=== PATIENT | male | born 1940 | race Caucasian/White ===

== ENCOUNTER 2017-11-24 15:17 | Outpatient (CLI) ==
--- NOTE | 2017-11-24 16:08 | US ---
EXAM: Right lower extremity venous Doppler History: Right lower extremity pain and swelling. Technique: Multiple sonographic images through the right lower extremity were obtained. Color duple x Doppler was used to interrogate vascular flow. Findings: Partial compression and partial flow within the right superficial femoral, popliteal, amee ramón and posterior tibial veins. No flow with no compression involving the right anterior tibial vei n. The rest of the right lower extremity venous structures demonstrate spontaneous flow with normal compression and normal augmentation. There is right lower extremity subcutaneous edema. Impression: Right lower extremity deep venous thrombosis. Dr. Lizama was notified of the results by the technologist.
[2017-11-24 17:38] VITALS: BMI 29.0
== END 2017-11-24 15:18 | disposition home or self-care (01) ==
LOC: RAD 15:17
PROVIDERS: ATTEND Internal Medicine
DX: M79.604 Pain in right leg (principal); M79.89 Other specified soft tissue disorders; Z86.718 Personal history of other venous thrombosis and embolism

== ENCOUNTER 2017-11-24 16:10 | Inpatient (IN) | payer OTHER ==
[2017-11-24] MEDS ORDERED: NITROSTAT SL PRN (16:40)
[2017-11-24] MEDS ORDERED: MORPHINE 4 MG/ML VIAL IVP PRN (16:40)
[2017-11-24] MEDS ORDERED: ATROPINE SULFATE PFS IVP PRN (16:40)
[2017-11-24] MEDS ORDERED: VISTARIL INJ IM PRN (16:40)
[2017-11-24] MEDS ORDERED: TYLENOL PO PRN (16:40)
[2017-11-24] MEDS ORDERED: HUMULIN R SUBCUT PRN (16:44)
[2017-11-24 17:38] VITALS: BMI 29.0
--- NOTE | 2017-11-24 17:38 | DI ---
EXAM: Single view chest COMPARISON: None HISTORY: Cough FINDINGS: Lungs are clear with no lobar consolidation, failure, large effusion or significant atelec tasis. There is old granulomatous disease. Cardiac and mediastinal silhouettes show no acute abnormal ity. No acute soft tissue or osseous abnormalities. IMPRESSION: No active disease.
[2017-11-24] MEDS: ZESTRIL PO SCH (20:32)
[2017-11-24] MEDS: HYDROCHLOROTHIAZIDE PO SCH (20:32)
[2017-11-24] MEDS: XARELTO PO SCH (20:33)
[2017-11-25] MEDS ORDERED: ASPIRIN EC PO SCH (08:00)
[2017-11-25] MEDS ORDERED: SODIUM CHLORIDE 1,000 ML IV SCH (08:30)
[2017-11-25] MEDS: TRADJENTA PO SCH (08:59)
[2017-11-25] MEDS: GLUCOTROL PO SCH (08:59)
[2017-11-25] MEDS: ZESTRIL PO SCH ×2 (08:59→21:14)
[2017-11-25] MEDS: HYDROCHLOROTHIAZIDE PO SCH ×2 (08:59→21:15)
[2017-11-25] MEDS: FLOMAX PO SCH (08:59)
[2017-11-25] MEDS: XARELTO PO SCH ×2 (08:59→21:15)
--- NOTE | 2017-11-25 10:44 | PCM.PROG ---
Attending Provider: ATTENDING PROVIDER: Dr. MARIAN RODRIGUEZ This patient is seen with Kristi Nichols, Nurse Practitioner. DATE OF SERVICE: 11/25/17 SUBJECTIVE: This 77 year old WHITE/ M was hospitalized 11/24/17. The patient is lying in bed resting comfortably. Venous scan positive for DVT in right lower extremity yesterday. He was started on Xarelto for DVT treatment. The patient has history of DVT right lower extremity 2017. REVIEW OF SYSTEMS: CONSTITUTIONAL: No night sweats. No fatigue, malaise, lethargy. No fever or chills. HEENT: Eyes: No visual changes. No eye pain. No eye discharge. ENT: No runny nose. No epistaxis. No sinus pain. No odynophagia. No congestion. RESPIRATORY: No cough, no congestion. No hemoptysis. No shortness of breath. CARDIOVASCULAR: No angina symptoms. No CHF symptoms. No atypical chest pain for CAD. No palpitations. No orthopnea.. GASTROINTESTINAL: No abdominal pain. No nausea or vomiting. No diarrhea or constipation. No hematemesis. No hematochezia. GENITOURINARY: No urgency. No frequency. No dysuria. No hematuria. No obstructive symptoms. No discharge. No pain. No significant abnormal bleeding. MUSCULOSKELETAL: Right leg pain with walking. NEUROLOGICAL: Awake, alert, oriented to time, place and person. No headache. No neck pain. No syncope. No seizures. No dizziness. PSYCHIATRIC: Not anxious. No depression. No suicidal thoughts. No homicidal thoughts. SKIN: No rash. No lesions. No wounds. ENDOCRINE: No unexplained weight loss. No weight gain. HEMATOLOGIC/LYMPHATIC: No anemia. No purpura. No petechiae. No prolonged or excessive bleeding. No palpable lymph nodes. PHYSICAL EXAMINATION: GENERAL: The patient is awake, alert and oriented, lying in bed in no distress. VITAL SIGNS: Temperature 98.4 F, Pulse 63, Respiratory Rate 20, BP 131/71, Pulse Ox 95% HEENT: Head normocephalic, atraumatic. Eyes: Extraocular muscles are intact. Pupils are equal, round and reactive to light and accommodation. Ears: No lesions. Nose appeared normal. Throat: No exudate or erythema. NECK: Supple. No JVD, no carotid bruit. No lymphadenopathy or thyromegaly. LUNGS: Diminished breath sounds. Clear to auscultation. Percussion note normal. Chest symmetrical. HEART: S1, S2, no S3. No murmurs. No cyanosis or clubbing. No ascites. Pulses: Dorsalis pedis and posterior tibial pulses +1 to +2 both sides. ABDOMEN: Soft. Non-tender. Bowel sounds active. No CVA tenderness. No mass felt. EXTREMITIES: Slight swelling right lower extremity, warm to touch. Full range of motion of all extremities, equal. NEUROLOGIC: No focal deficit. Cranial nerves II through XII are grossly intact. No headache, no double vision or headache. SKIN: Not dry. Intact. Turgor-normal. LYMPHATIC: No palpable lymph nodes/no lymphedema. MUSCULOSKELETAL: Normal joints with no swelling. Muscle tone is normal. LAB REVIEW: 11/25/17 04:10 11/25/17 04:10 11/25/17 04:10: Sodium 135.5 L, Potassium 4.03, Chloride 99.7, Carbon Dioxide 31.9 H, Anion Gap 7.93, BUN 31.4 H, Creatinine 1.32 H, Estimated GFR (MDRD) 53.00, BUN/Creatinine Ratio 23.78, Glucose 125.6 H, Calcium 9.31, Total Bilirubin 0.61, AST 28.2, ALT 19.4, Alkaline Phosphatase 37.2 L, Total Protein 6.39, Albumin 3.39 L, Globulin 3.00, Albumin/Globulin Ratio 1.13 11/25/17 04:10: WBC 5.75, RBC 4.69 L, Hgb 13.0 L, Hct 39.1 L, MCV 83.4, MCH 27.7 , MCHC 33.2, RDW Coeff of Cliff 14.1, Plt Count 121 L, Immature Gran % (Auto) 0.2 , Neut % (Auto) 61.6, Lymph % (Auto) 18.4, [place] % (Auto) 13.4 H, Eos % (Auto) 5.7, Baso % (Auto) 0.7, Immature Gran # (Auto) 0.0, Neut # (Auto) 3.5, Lymph # ( Auto) 1.1, [place] # (Auto) 0.8, Eos # (Auto) 0.3, Baso # (Auto) 0.0 11/24/17 16:55: Free T4 1.12 11/24/17 16:55: Sodium 135.1 L, Potassium 3.70, Chloride 100.3, Carbon Dioxide 30.9 H, Anion Gap 7.60, BUN 32.7 H, Creatinine 1.35 H, Estimated GFR (MDRD) 51.00, BUN/Creatinine Ratio 24.22, Glucose 108.5 H, Calcium 9.06, Total Bilirubin 0.60, AST 38.1, ALT 21.1, Alkaline Phosphatase 42.8 L, Total Protein 6.85, Albumin 3.75, Globulin 3.10, Albumin/Globulin Ratio 1.20, TSH 0.518 11/24/17 16:55: WBC 7.15, RBC 4.79, Hgb 13.3 L, Hct 39.9 L, MCV 83.3, MCH 27.8, MCHC 33.3, RDW Coeff of [place] 14.2, Plt Count 125 L, Immature Gran % (Auto) 0.4, Neut % (Auto) 73.1, Lymph % (Auto) 12.4, [place] % (Auto) 10.1 H, Eos % (Auto) 3.6 , Baso % (Auto) 0.4, Immature Gran # (Auto) 0.0, Neut # (Auto) 5.2, Lymph # ( Auto) 0.9, [place] # (Auto) 0.7, Eos # (Auto) 0.3, Baso # (Auto) 0.0 ASSESSMENT: 1. DVT right lower extremity (this is the second occurrence). 2. Diabetes mellitus Type 2. 3. Obesity. 4. Hypertension. 5. BPH. PLAN: 1. IV NS at 75 mL/hr for 1L. 2. Stop Aspirin. 3. Rest and elevate right lower extremity. Plan and coordination of the patient's care discussed in the presence of Child Psychometrist and nurse. CONDITION: Stable SCRIBED BY: ELENA ACKERMAN Hand Roller scribed while in presence of service performed by Dr. Rodriguez/Kristi Nichols APRN on 11/25/17 ([id number])
--- NOTE | 2017-11-25 14:04 | HP ---
DATE OF SERVICE: 11/24/17 HISTORY OF PRESENT ILLNESS: This is a 77-year-old male with complaint of right lower leg pain and swelling times 24 hours. He use to be on Xarelto times 6 months. No shortness of breath. No fever. HIstory of DVT. PAST MEDICAL HISTORY: Diabetes mellitus Type 2 History of DVT right lower extremity 2016 (Dr. Tyler put him on it) Hypertension PAST SURGICAL HISTORY: None REVIEW OF SYSTEMS: CONSTITUTIONAL: No fever, no fatigue. HEENT: No sinus drainage, no sore throat. RESPIRATORY: No cough, no congestion. CARDIOVASCULAR: No atypical chest pain for coronary artery disease. No angina , CHF symptoms, palpitations or shortness of breath. GASTROINTESTINAL: No melena or abdominal pain. No GERD. GENITOURINARY: No hematuria, no prostatism, no polyuria. LOCKER PLANT ATTENDANT: No blackout, no dizziness, no headache, no double vision. MUSCULOSKELETAL: Osteoarthritis pain. ENDOCRINE: No weight loss, no weight gain. SKIN: Not dry, no rash. PSYCHIATRIC: Anxious. No depression, no suicidal thoughts, no homicidal thoughts. SOCIAL HISTORY: Nonsmoker. . Two children. No alcohol use. 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 FAMILY HISTORY: Father at age 36 with TB. Mother at age 49 with cancer. Three half brothers. Three half sisters. MEDICATIONS: Lisinopril/HCTZ 20/25 one b.i.d. daily Xarelto 20 mg daily Flomax 0.4 mg daily Tradjenta 5 mg daily Glipizide 5 mg daily Baby Aspirin 81 mg ALLERGIES: NKDA PHYSICAL EXAMINATION: V/S: Pulse 74, BP 138/78, 02 sat 98%, weight 202.6. Height 5'10", BMI 29.1. GENERAL APPEARANCE: Oriented times three. HEENT: Normal. NECK: No JVP, no bruits. RESPIRATORY: Lungs are clear. CARDIOVASCULAR: S1, S2, no S3, no murmurs. No cyanosis, clubbing. No ascites. GI/ABDOMEN: No tenderness. Bowel sounds are active. EXTREMITIES: Trace edema right lower extremity. Right leg swelling. Varicose veins. Pulses +1, equal. LOCKER PLANT ATTENDANT: Deep tendon reflexes, sensory, motor and gait all normal. RECTAL/PROSTATE: Prostate (3.65) 02/16. Colonoscopy refused. ASSESSMENT: 1. RIGHT LOWER EXTREMITY DVT TIMES TWO 2. RIGHT LEG SWELLING/VARICOSE VEINS 3. HISTORY OF DVT 4. DIABETES MELLITUS TYPE 2 5. HYPERTENSION 6. BPH 6. MURMUR II/ PLAN: 1. Routine telemetry orders, no cardiac enzymes 2. CBC, CMP now and daily 3. Start Xarelto 15 mg b.i.d. times 21 days 4. Continue all home medications 5. Chest x-ray 6. Sliding scale coverage 7. T4, TSH times one 8. ADA diet 9. Elevate legs TIME SPENT: More than 70 minutes. MTDD
[2017-11-26] MEDS: TRADJENTA PO SCH (08:49)
[2017-11-26] MEDS: FLOMAX PO SCH (08:50)
[2017-11-26] MEDS: GLUCOTROL PO SCH (08:50)
[2017-11-26] MEDS: XARELTO PO SCH (08:50)
[2017-11-26] MEDS: HYDROCHLOROTHIAZIDE PO SCH (08:50)
[2017-11-26] MEDS: ZESTRIL PO SCH (08:50)
[2017-11-26 10:36] VITALS: BP 130/69; TEMP 98
--- NOTE | 2017-11-26 11:04 | PCM.PROG ---
Attending Provider: ATTENDING PROVIDER: Dr. MARIAN RODRIGUEZ This patient is seen with Kristi Nichols, Nurse Practitioner. DATE OF SERVICE: 11/26/17 SUBJECTIVE: This 77 year old WHITE/ M was hospitalized 11/24/17. Lying in bed, resting comfortably. The patient is not in any pain. She has been on Xarelto for nearly 48 hours, Risks associated with Xarelto discussed in detail with the patient regarding GI and intracranial bleed. REVIEW OF SYSTEMS: CONSTITUTIONAL: No night sweats. No fatigue, malaise, lethargy. No fever or chills. HEENT: Eyes: No visual changes. No eye pain. No eye discharge. ENT: No runny nose. No epistaxis. No sinus pain. No odynophagia. No congestion. RESPIRATORY: No cough, no congestion. No hemoptysis. No shortness of breath. CARDIOVASCULAR: No angina symptoms. No CHF symptoms. No atypical chest pain for CAD. No palpitations. No orthopnea.. GASTROINTESTINAL: No abdominal pain. No nausea or vomiting. No diarrhea or constipation. No hematemesis. No hematochezia. GENITOURINARY: No urgency. No frequency. No dysuria. No hematuria. No obstructive symptoms. No discharge. No pain. No significant abnormal bleeding. MUSCULOSKELETAL: Mild right leg swelling. NEUROLOGICAL: Awake, alert, oriented to time, place and person. No headache. No neck pain. No syncope. No seizures. No dizziness. PSYCHIATRIC: Not anxious. No depression. No suicidal thoughts. No homicidal thoughts. SKIN: No rash. No lesions. No wounds. ENDOCRINE: No unexplained weight loss. No weight gain. HEMATOLOGIC/LYMPHATIC: No anemia. No purpura. No petechiae. No prolonged or excessive bleeding. No palpable lymph nodes. PHYSICAL EXAMINATION: GENERAL: The patient is awake, alert and oriented, lying in bed in no distress. VITAL SIGNS: Temperature 97.6 F, Pulse 62, Respiratory Rate 14, BP 127/73, Pulse Ox 95% HEENT: Head normocephalic, atraumatic. Eyes: Extraocular muscles are intact. Pupils are equal, round and reactive to light and accommodation. Ears: No lesions. Nose appeared normal. Throat: No exudate or erythema. NECK: Supple. No JVD, no carotid bruit. No lymphadenopathy or thyromegaly. LUNGS: Clear to auscultation. Percussion note normal. Chest symmetrical. HEART: S1, S2, no S3. No murmurs. No cyanosis or clubbing. No ascites. Pulses: Dorsalis pedis and posterior tibial pulses +1 to +2 both sides. ABDOMEN: Soft. Non-tender. Bowel sounds active. No CVA tenderness. No mass felt. EXTREMITIES: Mild right leg swelling. No erythema or tenderness. Full range of motion of all extremities, equal. NEUROLOGIC: No focal deficit. Cranial nerves II through XII are grossly intact. No headache, no double vision or headache. SKIN: Not dry. Intact. Turgor-normal. LYMPHATIC: No palpable lymph nodes/no lymphedema. MUSCULOSKELETAL: Normal joints with no swelling. Muscle tone is normal. LAB REVIEW: 11/26/17 04:15 11/26/17 04:15 11/26/17 04:15: Sodium 136.0 L, Potassium 4.02, Chloride 103.3, Carbon Dioxide 27.5, Anion Gap 9.22, BUN 27.9 H, Creatinine 1.27 H, Estimated GFR (MDRD) 55.00 , BUN/Creatinine Ratio 21.96, Glucose 117.1 H, Calcium 9.11, Total Bilirubin 0.54, AST 25.2, ALT 17.4, Alkaline Phosphatase 40.6 L, Total Protein 6.39, Albumin 3.54, Globulin 2.85, Albumin/Globulin Ratio 1.24 11/26/17 04:15: WBC 6.71, RBC 4.84, Hgb 13.5 L, Hct 40.3 L, MCV 83.3, MCH 27.9, MCHC 33.5, RDW Coeff of Cliff 14.1, Plt Count 137 L, Immature Gran % (Auto) 0.3, Neut % (Auto) 65.7, Lymph % (Auto) 15.6, [place] % (Auto) 12.1 H, Eos % (Auto) 5.7 , Baso % (Auto) 0.6, Immature Gran # (Auto) 0.0, Neut # (Auto) 4.4, Lymph # ( Auto) 1.1, [place] # (Auto) 0.8, Eos # (Auto) 0.4, Baso # (Auto) 0.0 11/24/17 14:12: Urine Color Yellow, Urine Clarity Clear, Urine pH 5.5, Ur Specific [place] 1.010, Urine Protein Negative, Urine Glucose (UA) Negative, Urine Ketones Negative, Urine Blood Trace-lysed, Urine Nitrite Negative, Urine Bilirubin Negative, Urine Urobilinogen 0.2, Ur Leukocyte Esterase Trace, Urine Microscopic RBC 0-2, Ur Squamous Epith Cells Not present ASSESSMENT: 1. DVT right lower extremity (this is the second occurrence). 2. Diabetes mellitus Type 2. 3. Obesity. 4. Hypertension. 5. BPH. PLAN: 1. D/C home. 2. Will see in office next week. 3. Advised to be up and about today. 4. Will continue 21 days of Xarelto 15 mg b.i.d. then will transition to 20 mg daily. The patient will likely be on Xarelto indefinitely. 5. Lipid profile. 6. Echo if not done. Plan and coordination of the patient's care discussed in the presence of Web Site Designer and nurse. CONDITION: Stable SCRIBED BY: ELENA ACKERMAN Filling Carrier scribed while in presence of service performed by Dr. Rodriguez/Kristi Nichols APRN on 11/26/17 ([id number])
--- NOTE | 2017-11-26 11:38 | CM.DICTOOL ---
ADMISSION: 11/24/17 16:10 DISCHARGE: 11/26/17 FINAL DIAGNOSIS DVT, RIGHT LOWER EXTREMITY HYPERTENSION DIABETES MELLITUS, TYPE 2 BPH PREVIOUS DVT, RLE (DECEMBER 2015 AND WAS ON XARELTO) HISTORY OF TOBACCO USE, STOPPED 50 YEARS AGO EAR DRUM RUPTURE CHILD DOESN'T KNOW WHICH EAR PNEUMONIA CHILD URINARY FREQUENCY KIDNEY STONES LAST VITALS Temp Pulse Resp BP Pulse Ox 98.0 F 79 14 130/69 95 11/26/17 10:00 11/26/17 10:00 11/26/17 10:00 11/26/17 10:00 11/26/17 10:00 TAKE THESE MEDICATIONS AT HOME Glipizide (Glucotrol) 5 mg PO DAILY [facility] Last Admin: 11/26/17 08:50 Dose: 5 mg Hydrochlorothiazide (Hydrochlorothiazide) 25 mg PO BID [facility] Last Admin: 11/26/17 08:50 Dose: 25 mg Linagliptin (Tradjenta) 5 mg PO DAILY [facility] Last Admin: 11/26/17 08:49 Dose: 5 mg Lisinopril (Zestril) 20 mg PO BID [facility] Last Admin: 11/26/17 08:50 Dose: 20 mg Rivaroxaban (Xarelto) 15 mg PO DVT PACK TAKE DIRECTED Stop: 12/15/17 20:59 Last Admin: 11/26/17 08:50 Dose: 15 mg Tamsulosin HCl (Flomax) 0.4 mg PO DAILY [facility] Last Admin: 11/26/17 08:50 Dose: 0.4 mg ALLERGIES No Known Allergies Allergy (Unverified 02/13/16 10:56) Discontinued Medications ASPIRIN 81MG PO DAILY NEW PRESCRIPTIONS: NEW MEDICATION: 1. XARELTO DVT PACK - TAKE DIRECTED. SMOKING: N/A DISEASE SPECIFIC EDUCATION: DVT MEDICATIONS ESPECIALLY XARELTO USE ACTIVITY DIET LAB REVIEW: 11/26/17 04:15 11/26/17 04:15 11/26/17 04:15: Triglycerides 86.0, Cholesterol 170.0, LDL Cholesterol, Calc 118 , VLDL Cholesterol 17, HDL Cholesterol 34.4 L, Cholesterol/HDL Ratio 4.9 11/26/17 04:15: Sodium 136.0 L, Potassium 4.02, Chloride 103.3, Carbon Dioxide 27.5, Anion Gap 9.22, BUN 27.9 H, Creatinine 1.27 H, Estimated GFR (MDRD) 55.00 , BUN/Creatinine Ratio 21.96, Glucose 117.1 H, Calcium 9.11, Total Bilirubin 0.54, AST 25.2, ALT 17.4, Alkaline Phosphatase 40.6 L, Total Protein 6.39, Albumin 3.54, Globulin 2.85, Albumin/Globulin Ratio 1.24 11/26/17 04:15: WBC 6.71, RBC 4.84, Hgb 13.5 L, Hct 40.3 L, MCV 83.3, MCH 27.9, MCHC 33.5, RDW Coeff of Cliff 14.1, Plt Count 137 L, Immature Gran % (Auto) 0.3, Neut % (Auto) 65.7, Lymph % (Auto) 15.6, [place] % (Auto) 12.1 H, Eos % (Auto) 5.7 , Baso % (Auto) 0.6, Immature Gran # (Auto) 0.0, Neut # (Auto) 4.4, Lymph # ( Auto) 1.1, [place] # (Auto) 0.8, Eos # (Auto) 0.4, Baso # (Auto) 0.0 11/24/17 14:12: Urine Color Yellow, Urine Clarity Clear, Urine pH 5.5, Ur Specific [place] 1.010, Urine Protein Negative, Urine Glucose (UA) Negative, Urine Ketones Negative, Urine Blood Trace-lysed, Urine Nitrite Negative, Urine Bilirubin Negative, Urine Urobilinogen 0.2, Ur Leukocyte Esterase Trace, Urine Microscopic RBC 0-2, Ur Squamous Epith Cells Not present PLAN: DISCHARGE HOME TODAY. 11/26/17 CONTINUE HOME MEDICATIONS PER NURSING SHEET EXCEPT: 1. DO NOT TAKE ASPIRIN 81MG NEW MEDICATION: 1. XARELTO DVT PACK. TAKE DIRECTED. DIET: TOLERATED ACTIVITY: GRADUALLY RESUME ACTIVITY. ELEVATE LEGS WHEN SITTING. FOLLOW UP WITH DR. RODRIGUEZ ON FridayDecember AT 945AM. IF UNABLE TO KEEP APPOINTMENT, PLEASE CALL TO RESCHEDULE AT [phone]. PATIENT IS A FULL CODE. SITTING UP IN ROOM. ALET AND ORIENTED X 4. DR. RODRIGUEZ AND Fady KAY WEB PRESS ROLL TENDER INTO SEE PATIENT THIS AM. PATIENT STATES FEELING BETTER. PLAN OF CARE DISCUSSED PER DR. RODRIGUEZ INCLUDING DISCHARGE INSTRUCTIONS, MEDICATIONS AND ACTIVITY. INFORMED PATIENT THAT HE MAY NEED TO TAKE THE XARELTO INDEFINITELY. PATIENT VERBALIZES UNDERSTANDING AND AGREEABLE. APPETITE IS GOOD. VITAL SIGNS ARE STABLE. HAS BEEN AFEBRILE. POX 95% ON ROOM AIR. HEART TONES ARE REGULAR WITH TELEMETRY REVEALING SINUS RHYTHM WITH FIRST DEGREE AVB. NO C/O PAIN OR DISCOMFORT. LUNGS ARE CLEAR. HAS NON-PRODUCTIVE COUGH. NO DYSPNEA NOTED. ABDOMEN IS SOFT, NON-TENDER WITH BOWEL SOUNDS POSITIVE IN ALL 4 QUADS. PEDAL PULSES POSITIVE WITH NON-PITTING EDEMA TO RIGHT ANKLE. RIGHT CALF IS SLIGHTLY SWOLLEN AND WARM TO THE TOUCH. NO REDNESS NOTED. STATES PAIN TO RIGHT CALF WITH AMBULATION. IS ON BED-REST BUT ABLE TO GET UP TO BATHROOM AND IS INDEPENDENT. DR. RODRIGUEZ ENCOURAGED PATIENT TO AMBULATE MORE TODAY AND THEN HE CAN GO HOME THIS AFTERNOON. PATIENT AGREEABLE. WILL DO LIPIDS AND ECHO BEFORE DISCHARGE. DR. MARIAN RODRIGUEZ MD Fady KAY APRN
--- NOTE | 2017-11-26 14:38 | PN ---
DATE OF SERVICE: 11/25/17 SUBJECTIVE: The patient is seen and examined with the nurse practitioner. The patient is on Xarelto. This is the second episode of DVT. This is more extensive. There is no symptoms of pulmonary embolism. His medical condition otherwise is stable. The patient will be stabilized on Xarelto and discharged home. The patient is explained about Xarelto and its side effects especially GI and intracranial bleed. TIME SPENT: More than 30 minutes. Plan and coordination of the patient's care discussed in the presence of nurse. VANESSA
--- NOTE | 2017-11-26 15:29 | ECHO2D ---
Date of Exam: 11/26/17 Ordering Physician: DR. MARIAN RODRIGUEZ Room #: 111 Reason for Echo: SOB, HX DVT, LOWER EXTREMITY EDEMA, HTN M-Mode Normal Adult Results LV Dimensions Normal Adult Results AoV Opening excursions >1.6 >1.6 LVEDD-base- 3.5-5.8 4.4 Ao root dimensions 2.0-3.7 3.4 LVESD-base- 3.1-4.6 L. Atrium dimensions 1.9-3.8 3.9 Post. Wall thickness 0.8-1.1 1.2 IV septum (thickness) 0.7-1.2 1.2 Post. Wall excursion 0.72-1.3 NORMAL Septal motion NORMAL Systolic motion R. Ventricular cavity 1.5-2.0 NORMAL LVEF 60% 68% Paradoxical septal wall motion NORMAL 2-D : 2-D M Mode Echocardiogram was performed using apical four chamber and left parasternal long and short axis views. Mitral, tricuspid and aortic valves appear to be normal. Contractility of the left ventricle seems to be normal, so is the cavity size. Left atrial cavity size and aortic root appear to be normal. There is no pericardial effusion. There is no thrombus noted in the left ventricular or left aortic cavity. No mitral valve prolapse noted. M-MODE: MV: NORMAL AV: NORMAL TV: NORMAL PV: CHAMBER SIZE: NORMAL WALL MOTION: NORMAL PERICARDIUM: NORMAL INTERPRETATION: 1. BORDERLINE LEFT VENTRICULAR HYPERTROPHY 2. NORMAL VALVES 3. NORMAL LEFT VENTRICULAR CONTRACTILITY MTDD
--- NOTE | 2017-11-27 13:11 | DS ---
DATE OF SERVICE: 11/26/17 FINAL DIAGNOSIS: 1. DVT, RIGHT LOWER EXTREMITY 2. HYPERTENSION 3. DIABETES MELLITUS TYPE 2 4. BPH 5. PREVIOUS DVT, RLE (DECEMBER 2015 AND WAS ON XARELTO) 6. HISTORY OF TOBACCO USE, STOPPED 50 YEARS AGO 7. EAR DRUM RUPTURE CHILD DOESN'T KNOW WHICH EAR 8. PNEUMONIA A CHILD 9. URINARY FREQUENCY 10. KIDNEY STONES DISCHARGE INSTRUCTIONS: Followup appointment with Dr. Lizama on December 03 at 9:45 a.m. If unable to keep appointment, please call to camila, [phone]. The patient is a full code. MEDICATIONS AT DISCHARGE: Tradjenta 5 mg p.o. daily Glipizide 5 mg p.o. daily Flomax 0.4 mg p.o. daily Lisinopril/Hydrochlorothiazide one each p.o. b.i.d. DISCONTINUED MEDICATIONS: Aspirin 81 mg p.o. daily NEW PRESCRIPTIONS: Xarelto DVT pack. Take as directed. DIET INSTRUCTIONS: As tolerated. ACTIVITY: Gradually resume activity. Elevate legs when sitting. SMOKING: N/A DISEASE SPECIFIC EDUCATION: DVT Medications especially Xarelto use Activity Diet HOSPITAL COURSE: This is a 77-year-old white male who presented to our office complaining of right lower extremity pain with walking. He had a previous DVT in 2016 and was on Xarelto for [address] Tyler and then it was discontinued. He is a nonsmoker. He has a history of hypertension. We did a venous scan on the right lower extremity and sent him over from our office. It was positive and showed a worsening DVT than previous within the popliteal tibial and surrounding veins. He was a direct admit from our office, placed on bedrest and instructed to elevate his right lower extremity. All of his medications were continued. We started him on Xarelto for DVT treatment at 15 mg p.o. b.i.d. He will remain on this for the next 21 days and then he will start Xarelto 20 mg daily. Since this is the second occurrence of DVT he will likely stay on his Xarelto indefinitely. The risk of bleeding such as GI bleed, intracranial bleed have all been discussed. His hemoglobin has remained stable while here. No signs of bleeding. He has tolerated the treatment well. He is going to continue all of his medications. He will go home, resume activity as tolerated. Will follow him next week in the office. TIME SPENT: More than 60 minutes. VANESSA
== END 2017-11-26 13:45 | disposition home or self-care (01) | DRG 301 ==
LOC: MEDSURG A 16:10
PROVIDERS: ADMIT Internal Medicine; ATTEND Internal Medicine
DX: I83.91 Asymptomatic varicose veins of right lower extremity (principal); I10 Essential (primary) hypertension; M79.89 Other specified soft tissue disorders; N40.0 Benign prostatic hyperplasia without lower urinary tract symptoms; E11.9 Type 2 diabetes mellitus without complications; E66.9 Obesity, unspecified; R35.0 Frequency of micturition; Z86.718 Personal history of other venous thrombosis and embolism; Z79.01 Long term (current) use of anticoagulants; Z87.891 Personal history of nicotine dependence
CPT/HCPCS: 36415; 80053; 80061; 81001; 82962; 84439; 84443; 85025; 93005; 93010

== ENCOUNTER 2018-04-17 10:25 | Emergency (ER) ==
[2018-04-17 10:30] VITALS: BP 154/75; TEMP 98.2; BMI 29.5
--- NOTE | 2018-04-17 11:42 | DI ---
EXAM: LEFT SHOULDER HISTORY: Shoulder pain FINDINGS: Left shoulder three-view. The bones appear demineralized. There is moderate arthropathy of the AC joint. Mild arthropathy of the glenohumeral joint. No fracture or joint dislocation. IMPRESSION: 1. Arthropathy of the shoulder. No acute radiographic findings.
--- NOTE | 2018-04-17 11:51 | ED.PDOC ---
General ED Provider: Dr. VADIM HAIDER Chief Complaint: Fall Stated Complaint: left shoulder pain after a fall 3 days ago Time Seen by Physician: 10:30 (seen with bryan at all times ) Mode of Arrival: Walk-In Information Source: Patient Exam Limitations: No limitations Primary Care Provider: MARIAN RODRIGUEZ Nursing and Triage Documentation Reviewed and Agree: Yes Does patient meet sepsis criteria?: No System Inflammatory Response Syndrome: Not Applicable Sepsis Protocol: For patient's 13 years and over: Temp is 96.8 and below OR 101 and greater Pulse >90 BPM Resp >20/minute Acutely Altered Mental Status Are patient's symptoms suggestive of a new infection, such as: -Pneumonia -Skin, Soft Tissue -Endocarditis -UTI -Bone, Joint Infection -Implantable Device -Acute Abdominal Infection -Wound Infection -Meningitis -Blood Stream Catheter Infection -Unknown Musculoskeletal Complaint Exam - Upper Extremity Complaint/Exam Location of Pain: Reports: Left, Shoulder Mechanism of Injury: Reports: Trauma (fall) Onset/Duration: today Symptoms Are: Still present Timing: Constant Initial Severity: Mild Current Severity: Mild Location: Reports: Discrete Character: Reports: Dull, Aching Aggravating: Reports: Movement, Lifting, Flexion, Extension Alleviating: Reports: Rest Related History: Reports: Similar episode Non-Orthopedic Risk Factors: Reports: None DVT Risk Factors: Reports: None Septic Arthritis Risk Factors: Reports: None Related Surgical History: Reports: None Upper Extremity Findings: Absent: Swelling, Ecchymosis, Abnormal contour, Ligamentous instability, Laceration Review of Systems - Review Of Systems Constitutional: Reports: No symptoms Eyes: Reports: No symptoms Ears, Nose, Mouth, Throat: Reports: No symptoms Respiratory: Reports: No symptoms Cardiac: Reports: No symptoms GI: Reports: No symptoms : Reports: No symptoms Musculoskeletal: Reports: Joint pain (left shoulder ) Skin: Reports: No symptoms Neurological: Reports: No symptoms Endocrine: Reports: No symptoms Hematologic/Lymphatic: Reports: No symptoms All Other Systems: Reviewed and Negative Past Medical History - Past Medical History Previously Healthy: Yes Endocrine: Reports: DM 2 Cardiovascular: Reports: Hypertension Respiratory: Reports: None Hematological: Reports: None Gastrointestinal: Reports: None Genitourinary: Reports: None Neuro/Psych: Reports: None Musculoskeletal: Reports: None Cancer: Reports: None - Surgical History General Surgical History: Reports: None - Family History Family History: Reports: None - Social History Smoking Status: Never smoker Hx Substance Use: No Alcohol Screening: None - Immunizations Tetanus Shot up to Date: Yes Physical Exam - Physical Exam Appearance: Well-appearing, No pain distress, Well-nourished Eyes: DEMARIO, EOMI, Conjunctiva clear ENT: Ears normal, Nose normal, Oropharynx normal Respiratory: Airway patent, Breath sounds clear, Breath sounds equal, Respirations nonlabored Cardiovascular: RRR, Pulses normal, No rub, No murmur GI/: Soft, Nontender, No masses, Bowel sounds normal, No Organomegaly Musculoskeletal: Limited ROM (left shoulder ) Skin: Warm, Dry, Normal color Neurological: Sensation intact, Motor intact, Reflexes intact, Cranial nerves intact, Alert, Oriented Psychiatric: Affect appropriate, Mood appropriate Critical Care Note - Critical Care Note Total Time (mins): 0 Course - Course Orders, Labs, Meds: Orders Category Date Time Status SHOULDER, LEFT MIN 2V Stat RADS 04/17/18 11:05 Completed Vital Signs: Temp Pulse Resp BP Pulse Ox 04/17/18 10:26 98.2 F 78 20 154/75 H 95 Departure - Departure Time of Disposition: 11:51 Disposition: HOME SELF-CARE Discharge Problem: Left shoulder pain Qualifiers: Chronicity: acute Qualified Code(s): M25.512 - Pain in left shoulder Instructions: Shoulder Pain (ED) Condition: Good Pt referred to PMD for follow-up: Yes IPMP verified?: No Additional Instructions: Please call your Family Physician as soon as possible to schedule a follow-up appointment.you get benfit for an MRI OF THE SHOULDER TO SEE MORE DETAIL OF YOUR SHOULDER, Allergies/Adverse Reactions: Allergies No Known Allergies Allergy (Unverified 02/13/16 10:56) Home Medications: Ambulatory Orders Glipizide 5 mg PO DAILY 11/24/17 Linagliptin [Tradjenta] 5 mg PO DAILY 11/24/17 Lisinopril/Hydrochlorothiazide [Lisinopril-Hctz 20-25 mg Tab] 1 each PO BID Tamsulosin HCl [Flomax] 0.4 mg PO DAILY 11/24/17 Rivaroxaban [Xarelto] 15 mg PO BID #58 tablet 11/26/17
== END 2018-04-17 11:56 | disposition home or self-care (01) ==
LOC: ED 10:25
DX: M25.512 Pain in left shoulder (principal); W19.XXXA Unspecified fall, initial encounter
CPT/HCPCS: 99282